=== PATIENT | male | born 1945 | race Caucasian/White ===

== ENCOUNTER → 2016-11-17 | Outpatient (CLI) | payer OTHER, MEDICARE ==
[~2016-11-17] VITALS: Ht 180.3 cm; Wt 92.3 kg
[~2016-11-17] MED LIST: ALTACE5 M1 PO; ASPIRIN EC81 M1 PO; ATENOLOL 25MG T25 MG PO; BISOPROLOL FUMAR5 MG PO; BYSTOLIC2.5 MG PO; CRESTOR10 MG PO; CRESTOR20 MG PO; CYCLOBENZAPRINE10 MG PO; FINASTERIDE PO; HYDROCODON-ACE1 EACH PO; HYDROCODONE-AP1 EAC6 PO; MELOXICAM7.5 MG PO; MOBIC15 MG PO; MULTIVITAMINS; MULTIVITAMINS PO; NITROGLYCERIN0.4 MG SL; OMEGA-31000 MG PO; PLAVIX 75 MG TA75 MG PO
--- NOTE | ~2016-11-17 | HPC ---
[facility] [address] [address] PAIN MANAGEMENT CONSULTATION Name: DADNREMARIBETHJENNI DE ANDA Room #: REG TOSHIA Jenkins#: [id number] Admission: 11/17/16 Attend Phys: Emanuel Carver MD Discharge: Date of : 45 Report #: [id number] THIS REPORT FOR: //name// CC: Janae Carver DATE OF SERVICE: 11/17/2016 DATE OF REGISTRATION: 11/17/2016. Followup visit for chronic back pain with lumbar radiculopathy. I am seeing the patient today in followup for the first time in over a year. He does not need an injection, although that why he was last seen. He has done very well. He remains active, he golfs routinely. His pain score is a 1. On a periodic basis, he will use a meloxicam which has been helpful in managing arthritic symptoms, he does not use it routinely, he does use it often; however, when he is on the golf course, and I stressed the importance of remaining well hydrated to avoid any kidney damage. We reviewed the 3 nonsteroidal anti-inflammatory drug risks including GI, renal and cardiac. He is a very, very infrequent user of hydrocodone, but is grateful for it when he has it. I prescribed him 30 tablets of hydrocodone 5/325 almost a year ago. That means he takes may be 3 tablets a month when the pain is severe and he is grateful for the relief that it provides him. He has no significant side effects. I will gladly renew this medication for him, which he uses effectively and cautiously. We have discussed the opioid side effects and we had a nice discussion today about opioid issues in [place] today. He will safeguard all medications. IMPRESSION: 1. Chronic back pain with spondylosis and radiculopathy, currently under good control. 2. Management of high risk medication at a very, very low dose. PLAN: Prescription for hydrocodone was renewed for him today for hydrocodone 5/325, #30 tablets. I will see him back as needed. <ELECTRONICALLY SIGNED> By: Emanuel Carver MD 11/21/16 1717 1601 1621 Emanuel Carver MD /nt
[2016-11-17 10:22] VITALS: BP 110/60
== END | disposition home or self-care (01) ==
LOC: PAIN 07:44
DX: M47.896 Other spondylosis, lumbar region (principal); M54.16 Radiculopathy, lumbar region; G89.29 Other chronic pain; F11.20 Opioid dependence, uncomplicated; Z79.82 Long term (current) use of aspirin; Z79.899 Other long term (current) drug therapy

== ENCOUNTER → 2018-04-03 | Outpatient (CLI) | payer OTHER, MEDICARE ==
[~2018-04-03] VITALS: Ht 180.3 cm; Wt 91.4 kg
--- NOTE | ~2018-04-03 | HPC ---
[facility] [address] [place] [address] PAIN MANAGEMENT CONSULTATION Name: MARIBETH AMOS Room #: REG TOSHIA Alice#: [id number] Admission: 04/03/18 Attend Phys: Ben Moreno DO Discharge: Date of : 45 Report #: [id number] THIS REPORT FOR: //name// CC: Janae Carver MD DATE OF SERVICE: 04/03/2018 CHIEF COMPLAINT: Low back pain, lower extremity pain with paresthesias. HISTORY OF PRESENT ILLNESS: As you know, the patient is a very pleasant 72-year-old male who returns today in followup visit with recurrent low back pain, lower extremity pain with paresthesias. The patient is placing pain score around 3-7/10 depending on activity. As you are aware, the patient is an avid golfer who golfs with regularity. He returns today to undergo epidural injection to address ongoing pain issues. He has plans to leave the [place] area for his wintering in [place] and he has returned to undergo epidural injection to address lumbar radicular symptoms. Due to scheduling conflicts, the patient was placed on my schedule to undergo the injection today. He typically follows with Dr. Carver. He indicates today pain level of around 3-7/10 without activity. Denies injury or trauma that may have led to symptom recurrence. He returns requesting epidural injection. The patient does indicate that previous epidural injection gave 80% improvement in overall pain until just recently approximately 3 weeks ago with slow and progressive return of symptoms. ALLERGIES: No known drug allergies. CURRENT MEDICATIONS: Aspirin, multivitamin, lovastatin, atenolol, cyclobenzaprine, meloxicam, hydrocodone. SOCIAL HISTORY: The patient denies tobacco, alcohol, IV or illicit drug use. He is unaccompanied today. IMAGING: No new imaging available. PQRS: The patient has known arthritic changes of the right shoulder, also noted in low back. No rheumatoid arthritis. He is placing pain intensity 3-7/10. He is not a fall risk, has not had a fall in the last 3 months. He is not on blood thinners. He is treated for hypertension. He has been on opioids for an extended period of time. He has a low assessment for opioid addiction. His pain impact score is 17/70 indicating mild interference of daily [place] [address] PAIN MANAGEMENT CONSULTATION Name: MARIBETH AMOS Room #: REG TOSHIA Jenkins#: [id number] Admission: 04/03/18 Attend Phys: Ben Moreno DO Discharge: Date of : 45 Report #: [id number] PHYSICAL EXAMINATION: VITAL SIGNS: Blood pressure 130/60, pulse is 57, respiratory rate 16 and unlabored. The patient is 97% on room air. Height 5 feet 11 inches tall, weight 201.4 pounds, BMI calculated 28.1. GENERAL: Well-developed, well-nourished, well-hydrated 72-year-old male. He appears stated age. He is placing current pain score anywhere from 3-7/10 depending on activity. HEENT: Normocephalic, atraumatic. Pupils equal, round, reactive to light. Extraocular muscles are intact. EXTREMITIES: Show no clubbing, no cyanosis, no edema. MUSCULOSKELETAL: Lower extremity strength appears equal and symmetrical 5/5. He is intact to light touch from L1 through S2 dermatomes. Seated straight leg raising negative. Supine straight leg raising mildly positive. Timbo's test negative. Modified Gaenslen's is positive for axial low back pain. Ankle clonus negative. Babinski is negative. ASSESSMENT: 1. Symptomatic lumbar radiculopathy. 2. Lumbosacral spondylosis with radiculopathy. 3. Lumbar degeneration. 4. Chronic intractable pain. PLAN: 1. The patient returns today in followup visit requesting to undergo epidural injection under fluoroscopic guidance. His last injection provided excellent benefit of 80% improvement in overall pain lasting until just recently. The patient denies injury, trauma or any changes in medical history since our last visit that may have led to recurrence of pain. 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 He believes this may have exacerbated symptoms. He returns requesting epidural injection today. He has been advised risks and benefits of this procedure, states he understood and wished to proceed. 2. No medication changes made at today's visit. The patient will continue current medical therapy as previously prescribed. 3. We will see the patient back in followup visit on an as needed basis for possible next in the series of epidural injections. We wish him well and I hope he enjoys his wintering in the [facility]. We will be available to see him back on an as needed basis. By: [id number] Ben Moreno DO /nt
--- NOTE | ~2018-04-03 | P ---
[facility] [place] [address] [address] [place] [address] PROCEDURE REPORT Name: DANDREMARIBETH ADILSON Room #: REG [facility] Alice#: [id number] Admission: 04/03/18 Attend Phys: Ben Moreno DO Discharge: Date of : 45 Report #: [id number] THIS REPORT FOR: //name// CC: Janae Carver MD DATE OF SERVICE: 04/03/2018 DESCRIPTION OF PROCEDURE: L4-L5 interlaminar epidural steroid injection under fluoroscopic guidance. After obtaining written consent, the patient was taken back to fluoroscopy suite, placed in prone position with pillow under abdomen to decrease lumbar lordosis. Skin overlying lumbosacral area then prepped and draped in aseptic fashion. L4-L5 vertebral interspace was identified by AP fluoroscopy. Skin and subcutaneous tissue overlying target site of injection was anesthetized with 3 mL of 1% lidocaine. A 20-gauge 3-1/2-inch Tuohy needle advanced under fluoroscopic guidance towards the epidural space using a parasagittal approach. Epidural space identified using loss of resistance to air technique. After negative aspiration for heme or cerebrospinal fluid, 1 mL of Omnipaque injected. Lumbar epidurogram confirmed using both AP and lateral fluoroscopy. After negative aspiration for heme or cerebrospinal fluid, 5 mL of a solution containing 2 mL 40 mg per mL, 80 mg total triamcinolone, 3 mL lidocaine 1% injected slowly. Needle were then retracted approximately half way, flushed with 1 mL of 1% lidocaine and removed. Sterile bandage placed over injection site. No new motor deficits present in the lower extremity following procedure. The patient tolerated procedure well, carefully escorted to recovery room in stable condition. No apparent complications. After meeting discharge criteria, the patient discharged home. By: [id number] Ben Moreno DO /nt
[2018-04-03 09:34] VITALS: BP 130/60
== END | disposition home or self-care (01) ==
LOC: PAIN 08:26
DX: M51.16 Intervertebral disc disorders with radiculopathy, lumbar region (principal); M47.27 Other spondylosis with radiculopathy, lumbosacral region; G89.29 Other chronic pain; Z79.82 Long term (current) use of aspirin; Z79.899 Other long term (current) drug therapy; Z79.891 Long term (current) use of opiate analgesic; Z98.890 Other specified postprocedural states

== ENCOUNTER → 2018-10-02 | Outpatient (CLI) | payer OTHER, MEDICARE ==
[~2018-10-02] VITALS: Ht 180.3 cm; Wt 93.2 kg
[~2018-10-02] MED LIST changes: +FINASTERIDE1 MG PO; +FLEXERIL PO; +MOBIC7.5 MG PO; +NORCO 5-325 TA1 EAC1 PO
--- NOTE | 2018-10-02 08:25 | NUR ---
Pain Clinic Assessment: 1. History of Osteoarthritis: right shoulder History of Rheumatoid Arthritis: Not Applicable 2. Height: ft. in. cm. Weight: lb. oz. kg. Patient's BMI: 3. Vital Signs: BP: Pulse: Resp: Temp: 02 Sat: ECG Mon: 4. Pain Intensity: 7 5. Fall Risk: Dizziness: N Needs help standing or walking: N Fallen in the last 3 months: N Fall risk comments: 6. Patient on Blood Thinner: None 7. History of Hypertension: Y 8. Opioid Therapy greater than 6 weeks: Y Opiate Contract Signed: 10/22/15 9. Risk Assessment Tool Provided: LOW RISK 0/3 10. Functional Assessment Tool: 11. Recreational Drug Use: Never Drug Type: Tobacco Use: Never Smoker Tobacco Type: Amount or Packs/day: How Many Years: Alcohol Use: Yes Frequency: Weekly Quant: 1-2
[2018-10-02 08:29] VITALS: BP 160/71
--- NOTE | 2018-10-10 12:17 | HPC ---
[facility] [place] [address] PAIN MANAGEMENT CONSULTATION Name: DANDREMARIBETH Room #: REG [facility] Zac.#: [id number] Admission: 10/02/18 ������������������ Attend Phys: Ben Moreno DO Discharge: ������������������ Date of : 45 Report #: [id number] THIS REPORT FOR: //name// CC: LAUREN Moreno DATE OF SERVICE: 10/02/2018 CHIEF COMPLAINT: Low back pain, lower extremity pain with paresthesias. HISTORY OF PRESENT ILLNESS: As you know, the patient is a 73-year-old male who follows with my partner, Dr. Emanuel Carver for lumbar radiculopathy. Due to scheduling conflicts, the patient was placed on my schedule to undergo next in the series of lumbar epidural injections. He does very well with previous epidural injections, noting an improvement of approximately 60%. He returns today in followup visit reporting pain today of 7/10. He also indicates pain impact score that shows 46/70 indicating severe interference of daily activities secondary to pain. The patient denies any new injury or trauma. He returns today for next in the series of epidural injections. ALLERGIES: No known drug allergies. CURRENT MEDICATIONS: Aspirin 81 mg per day, meloxicam 7.5 mg twice a day, finasteride 1 mg once a day, multivitamin 1 tab per day, lovastatin 10 mg per day, atenolol 25 mg per day, cyclobenzaprine 10 mg t.i.d. p.r.n. muscle spasms, hydrocodone 5/325 one tab p.o. q.8 hours p.r.n. for pain. SOCIAL HISTORY: The patient denies tobacco, alcohol, IV or illicit drug use. He is retired, unaccompanied today. IMAGING DATA: No new imaging available. PQRS: The patient has known osteoarthritis of the right shoulder and lumbar spine. No rheumatoid arthritis. The patient is not at fall risk, has not had a fall in the last 3 months. He is not on blood thinners, but is treated for hypertension. He is on chronic opioids and reports a low opioid addiction potential. Pain impact score 46/70 indicating severe interference of daily activities secondary to pain. PHYSICAL EXAMINATION: VITAL SIGNS: Blood pressure 160/71, pulse 50, respiratory rate 16 and unlabored. The patient is 100% on room air. Height 5 feet 11 inches tall, weight 205.4 pounds. GENERAL: Well-developed, well-nourished, well-hydrated 73-year-old male appearing stated age, pain is rated at 7/10. [place] [address] PAIN MANAGEMENT CONSULTATION Name: DANDREMARIBETHJENNI DE ANDA Room #: REG [facility].#: [id number] Admission: 10/02/18 ������������������ Attend Phys: Ben Moreno DO Discharge: ������������������ Date of : 45 Report #: [id number] HEENT: Head normocephalic, atraumatic. Pupils equal, round, reactive to light. Extraocular muscles are intact. EXTREMITIES: Show no clubbing, no cyanosis, and no edema. MUSCULOSKELETAL: Lower extremity strength appears equal and symmetrical 5/5. Muscle bulk and tone equal and symmetrical. Seated straight leg raising negative. Supine straight leg raising negative. Timbo's test is negative. ASSESSMENT: 1. Chronic lumbar radiculopathy. 2. Lumbosacral spondylosis with radiculopathy. 3. Degeneration of lumbar spine. 4. Chronic intractable pain. PLAN: 1. The patient returns today in followup visit to undergo a lumbar epidural injection under fluoroscopic guidance. The patient reports good efficacy with previous epidural injections. He has been advised the risks and benefits of the procedure. These risks include but are not necessarily limited to bleeding, bruising, infection, worsening pain, no relief of pain, also risk of temporary or permanent muscle weakness, temporary or permanent nerve damage, possible paralysis, post-dural puncture, headache and . The patient states understood and wished to proceed. 2. No medication changes provided at today's visit. The patient will continue current medical therapy as previously prescribed. 3. We will see the patient back in followup visit on an as needed basis for next in the series of lumbar epidural injections. PROCEDURE NOTE DESCRIPTION OF PROCEDURE: L4-L5 interlaminar epidural steroid injection under fluoroscopic guidance. After obtaining written consent, the patient was taken back to fluoroscopy suite, placed in prone position with pillow under abdomen to decrease lumbar lordosis. Skin overlying the lumbosacral area then prepped and draped in aseptic fashion. Lumbar intervertebral spaces were identified by AP fluoroscopy. Skin and subcutaneous tissue overlying target site of injection was anesthetized with 3 mL of 1% lidocaine. A 20-gauge 3-1/2 inch Tuohy needle advanced under fluoroscopic guidance towards the epidural space using a paramedian approach. Epidural space identified using loss of resistance to air technique. After negative aspiration for heme or cerebrospinal fluid, 1 mL of Omnipaque injected. Lumbar epidurogram confirmed using both AP and lateral fluoroscopy. After negative aspiration for heme or cerebrospinal fluid, 5 mL of a solution containing 2 mL 40 mg per mL, 80 mg total triamcinolone and 3 mL of lidocaine 1% injected slowly. Needle then [facility] [address] [place] [address] PAIN MANAGEMENT CONSULTATION Name: MARIBETH AMOS Room #: REG [facility]#: [id number] Admission: 10/02/18 ������������������ Attend Phys: Ben Moreno DO Discharge: ������������������ Date of : 45 Report #: [id number] retracted approximately half way, flushed with 1 mL of 1% lidocaine and then removed. Sterile bandage placed over injection site. No new motor deficits present in lower extremity following the procedure. The patient tolerated procedure well, carefully escorted to recovery room in stable condition. No apparent complications. After meeting discharge criteria, the patient discharged home. ��������������������������������������������� <ELECTRONICALLY SIGNED> ���������������������������������������� By: Ben Moreno DO ��������������������������������������������� 10/10/18 1217 [id number] Ben Moreno DO /nt
== END | disposition home or self-care (01) ==
LOC: PAIN 06:34
DX: M51.16 Intervertebral disc disorders with radiculopathy, lumbar region (principal); M47.27 Other spondylosis with radiculopathy, lumbosacral region; G89.29 Other chronic pain; Z79.82 Long term (current) use of aspirin; Z79.899 Other long term (current) drug therapy